=== PATIENT | female | born 1985 | race Asian ===

== ENCOUNTER 2017-10-06 14:04 | Emergency (ER) | payer BC ==
[~2017-10-06] VITALS: Ht 160 cm; Wt 56.4 kg
[2017-10-06 14:18] VITALS: TEMP 36.8; Ht 160 cm; Wt 56.4 kg
[2017-10-06] MEDS ORDERED: SODIUM CHLORIDE 0.9% 1000ML 1,000 ML IV STA (14:34)
[2017-10-06 15:10] LABS: BASO % 0.2 %; BASO ABS # 0.01 K/uL (0-0.2); EOS % 0.5 %; EOS ABS # 0.03 K/uL (0-0.5); HEMOGLOBIN 12.3 g/dL (12.0-16.0); IG# 0.01 K/uL (0.00-0.02); LYMPH % 19.9 %; LYMPH ABS # 1.22 K/uL (1.2-3.4); MEAN CELL VOLUME 85.2 fL (80-100); MEAN CORPUSCULAR HEMOGLOBIN 29.9 pg (25-34); MEAN CORPUSCULAR HGB CONC 35.1 g/dl (32-36); MEAN PLATELET VOLUME 9.5 fL (7.4-10.4); MONO % 7.2 %; MONO ABS # 0.44 K/uL (0.11-0.59); NEUT ABS # 4.41 K/uL (1.4-6.5); PLATELET COUNT 193 K/uL (130-400); RED CELL DISTRIBUTION WIDTH CV 12.9 % (11.5-14.5); RED CELL DISTRIBUTION WIDTH SD 40.1 fL (36.4-46.3); WHITE BLOOD COUNT 6.12 K/uL (4.8-10.8)
--- NOTE | 2017-10-06 15:24 | EMERGENCY ROOM VISIT NOTE ---
History Report prepared by Citlali: Jovany Edwards Under the Supervision of: Dr. Ori Rogers M.D. First contact with patient: 14:29 Chief Complaint: OTHER COMPLAINT Stated Complaint: BLOOD CLOTS, HEAVY BLEEDING (HAD RECENT PROCEDURE) History of Present Illness The patient is a 32 year old female who presents to the Emergency Room with complaints of heavy menstrual bleeding that started 4 hours ago. She states she is unable to walk without bleeding and states she has had to change her pads twice very hour because they are soaked through. She states that normally by the third day of her menstrual cycle, she does not bleed as much and states that there has been an increase in clot size. She says that she had a leak procedure done 5 days ago by her OBGYN in [place]. The patient denies light headedness, chest pain, nausea, vomiting, fevers, chills, cough, and congestion. She denies any blood thinner use and control pills. Source of History: patient Onset: 4 hours ago Position: pelvis Timing: worsening Associated Symptoms: No fevers, No chills, No chest pain, No nausea, No vomiting Note: Patient complains of increased menstrual bleeding and blood clots. Patient denies light headedness. Review of Systems See HPI for pertinent positives and negatives. A total of ten systems were reviewed and were otherwise negative. Social History Smoking Status: Never Smoker Smokeless Tobacco Use: No Alcohol Use: occasionally Drug Use: none Marital Status: Housing Status: lives with family Current/Historical Medications No Active Prescriptions or Reported Meds Allergies Coded Allergies: No Known Allergies (Unverified , 10/06/17) Physical Exam Vital Signs Date Time Temp Pulse Resp B/P (MAP) Pulse Ox O2 Delivery O2 Flow Rate FiO2 10/06/17 18:16 103 16 127/84 97 10/06/17 17:25 98 22 120/78 99 Room Air 10/06/17 14:18 36.8 105 18 128/70 97 Room Air Physical Exam GENERAL: Awake, alert, well-appearing, in no distress HENT: Normocephalic, atraumatic. Oropharynx unremarkable. EYES: Normal conjunctiva. Sclera non-icteric. NECK: Supple. No nuchal rigidity. FROM. No JVD. RESPIRATORY: Clear to auscultation. CARDIAC: Regular rate, normal rhythm. Extremities warm and well perfused. Pulses equal. ABDOMEN: Soft, non-distended. No tenderness to palpation. No rebound or guarding. No masses. RECTAL: Deferred. MUSCULOSKELETAL: Chest examination reveals no tenderness. The back is symmetrical on inspection without obvious abnormality. There is no CVA tenderness to palpation. No joint edema. LOWER EXTREMITIES: Calves are equal size bilaterally and non-tender. No edema. No discoloration. NEURO: Normal sensorium. No sensory or motor deficits noted. SKIN: No rash or jaundice noted. PELVIC: Initial large amount of bloody discharge with large amount of dark red clots in vaginal vault. Once cleared, no significant active hemorrhage from cervix or cervical os. No CMT/AT Medical Decision & Procedures Laboratory Results 10/06/17 14:55 Red Blood Count 4.11, Mean Corpuscular Volume 85.2, Mean Corpuscular Hemoglobin 29.9, Mean Corpuscular Hemoglobin Concent 35.1, Mean Platelet Volume 9.5, Neutrophils (%) (Auto) 72.0, Lymphocytes (%) (Auto) 19.9, Monocytes (%) (Auto) 7.2, Eosinophils (%) (Auto) 0.5, Basophils (%) (Auto) 0.2, Neutrophils # (Auto) 4.41, Lymphocytes # (Auto) 1.22, Monocytes # (Auto) 0.44, Eosinophils # (Auto) 0.03, Basophils # (Auto) 0.01 10/06/17 14:55 Test 10/06/17 14:55 White Blood Count 6.12 K/uL (4.8-10.8) Red Blood Count 4.11 M/uL (4.2-5.4) Hemoglobin 12.3 g/dL (12.0-16.0) Hematocrit 35.0 % (37-47) Mean Corpuscular Volume 85.2 fL (80-100) Mean Corpuscular Hemoglobin 29.9 pg (25-34) Mean Corpuscular Hemoglobin Concent 35.1 g/dl (32-36) Platelet Count 193 K/uL (130-400) Mean Platelet Volume 9.5 fL (7.4-10.4) Neutrophils (%) (Auto) 72.0 % Lymphocytes (%) (Auto) 19.9 % Monocytes (%) (Auto) 7.2 % Eosinophils (%) (Auto) 0.5 % Basophils (%) (Auto) 0.2 % Neutrophils # (Auto) 4.41 K/uL (1.4-6.5) Lymphocytes # (Auto) 1.22 K/uL (1.2-3.4) Monocytes # (Auto) 0.44 K/uL (0.11-0.59) Eosinophils # (Auto) 0.03 K/uL (0-0.5) Basophils # (Auto) 0.01 K/uL (0-0.2) RDW Standard Deviation 40.1 fL (36.4-46.3) RDW Coefficient of Variation 12.9 % (11.5-14.5) Immature Granulocyte % (Auto) 0.2 % Immature Granulocyte # (Auto) 0.01 K/uL (0.00-0.02) Anion Gap 6.0 mmol/L (3-11) Est Creatinine Clear Calc Drug Dose 94.9 ml/min Estimated GFR () 131.5 Estimated GFR (Non- 113.5 BUN/Creatinine Ratio 17.8 (10-20) Calcium Level 8.6 mg/dl (8.5-10.1) Total Bilirubin 0.4 mg/dl (0.2-1) Direct Bilirubin < 0.1 mg/dl (0-0.2) Aspartate Amino Transf (AST/SGOT) 30 U/L (15-37) Alanine Aminotransferase (ALT/SGPT) 60 U/L (12-78) Alkaline Phosphatase 83 U/L (45-117) Total Protein 7.9 gm/dl (6.4-8.2) Albumin 3.9 gm/dl (3.4-5.0) Lipase 93 U/L (73-393) Laboratory results reviewed by me Medications Administered Medications (Trade) Dose Ordered Sig/Regina Route Start Time Stop Time Status Last Admin Dose Admin Sodium Chloride 1,000 ml @ 999 mls/hr Q1H1M STAT IV 10/06/17 14:34 10/06/17 15:34 DC 10/06/17 14:34 999 MLS/HR ED Course 1429: The patient was evaluated in room B12 A complete history and physical exam was performed. 1650: I checked on the patient and they are doing well. 1702: I performed a pelvic exam on the patient. 1723: I discussed the patient with Dr. Drew LEE who will evaluate the patient for further treatment. 174: I reevaluated the patient. Discussed results and discharge instructions: She verbalized understanding and agreement. The patient is ready for discharge. Medical Decision I reviewed the patient's past medical history, medications, and the nursing notes as described above. The patient's presentation and history were concerning for irregular menses, cervical bleeding, cervicitis, UTI, and pyelonephritis. The patient is a 32-year-old woman who presents emergency Department with heavy menses for the past 3 days that became much worse today with 2 saturated pads per hour for the past 3 hours in the setting of having a LEEP procedure on Wednesday in [place] where she lives per [facility]. Arrival the patient is in no acute distress, afebrile with stable vital signs. H&H 08/08/25 unremarkable. Patient hemodynamically stable denies any chest pain, shortness of breath, lightheadedness. Pelvic exam is notable for significant bloody discharge upon speculum insertion and significant amounts of dark red clot in the vaginal vault. However, once clot was evacuated there was no evidence of brisk hemorrhage/bleeding from the cervix itself or cervical os. Cervix appears friable/cauterized consistent with the patient's recent LEEP procedure. No CMT or AT. I d/w Dr. Russell, BOND ANALYST on-call who agrees that patient's menorrhagia is likely secondary to having her menses in close proximity to her LEEP procedure and so this is not an uncommon occurrence in the setting. He agrees that given the patient's reassuring exam and H&H is no indication for further intervention at this time. However emphasizes that the patient should avoid using tampons as this can dislodge clot formation on her cervix and worsened bleeding. Otherwise recommends that the patient follow-up with her business office representative soon as she returns to [place]. Findings and plan for follow-up reviewed with patient. Patient agreeable and d/c'd per discharge instructions. Medication Reconcilliation Current Medication List: was personally reviewed by me Blood Pressure Screening Patient's blood pressure: Normal blood pressure Blood pressure disposition: Did not require urgent referral Consults Time Called: 1721 Consulting Physician: Dr. Drew LEE Returned Call: 1723 I discussed the patient with Dr. Drew LEE who will evaluate the patient for further treatment. Impression Primary Impression: Menorrhagia Scribe Attestation The scribe's documentation has been prepared under my direction and personally reviewed by me in its entirety. I confirm that the note above accurately reflects all work, treatment, procedures, and medical decision making performed by me. Departure Information Dispostion Home / Self-Care Prescriptions No Active Prescriptions or Reported Meds Patient Instructions ED Bleed Irregular Vaginal, LEEP, My [facility] Additional Instructions Please follow up with your business office representative when you return to [place] for re- evaluation. Your increased bleeding is likely due to having your menstrual cycle after a recent LEEP procedure. Otherwise, your exam and lab results did not show signs of an emergent condition at this time. Use pads and not tampons. Tampons can loosen clots that have formed on your cervix and worsen bleeding. Drink plenty of fluids to ensure hydration. Return to the emergency department for worsening symptoms as described in the accompanying instructions.
[2017-10-06 15:28] LABS: ALBUMIN 3.9 gm/dl (3.4-5.0); ALT/SGPT 60 U/L (12-78); AST/SGOT 30 U/L (15-37); BLOOD UREA NITROGEN 13 mg/dl (7-18); CALCIUM 8.6 mg/dl (8.5-10.1); CARBON DIOXIDE 26 mmol/L (21-32); CREATININE 0.71 mg/dl (0.60-1.20); GLUCOSE 87 mg/dl (70-99); LIPASE 93 U/L (73-393); POTASSIUM 3.4 mmol/L (3.5-5.1); SODIUM 135 mmol/L (136-145)
[2017-10-06 15:30] LABS: ALKALINE PHOSPHATASE 83 U/L (45-117); TOTAL PROTEIN 7.9 gm/dl (6.4-8.2)
[2017-10-06 18:16] VITALS: BP 127/84; PULSE 103; O2SAT 97
== END 2017-10-06 18:17 | disposition home or self-care (01) ==
LOC: C.EDB 14:06 → MERGE 14:06 → C.EDB 18:17
DX: N92.0 Excessive and frequent menstruation with regular cycle (principal)

== ENCOUNTER 2017-10-06 20:14 | Emergency (ER) | payer BC ==
[~2017-10-06] VITALS: Ht 160 cm; Wt 56.5 kg
[2017-10-06 20:38] VITALS: BP 103/71; PULSE 100; TEMP 37; O2SAT 99; Ht 160 cm; Wt 56.5 kg
== END 2017-10-06 21:54 | disposition left against medical advice (07) ==
LOC: MERGE 20:16 → C.EDB 20:16
DX: N93.9 Abnormal uterine and vaginal bleeding, unspecified (principal)